=== PATIENT | male | born 1945 | race Caucasian/White ===

== ENCOUNTER 2025-05-29 16:08 | Emergency (ER) | payer MEDICARE ==
[~2025-05-29] VITALS: Ht 175.2 cm; Wt 70.3 kg
[2025-05-29 16:21] VITALS: BP 128/65
[2025-05-29] MEDS ORDERED: Tdap Vaccine 0.5 ML SYR (Adult Vaccine) IM ONE (16:25)
[2025-05-29] MEDS ORDERED: CEPHALEXIN500 M1 PO (17:05)
[2025-05-30] MEDS ORDERED: MUPIROCIN 15 GM TUBE T SCH (10:00)
== END 2025-05-29 17:23 | disposition home or self-care (01) ==
LOC: ED 16:08
DX: S61.412A Laceration without foreign body of left hand, initial encounter (principal); W26.0XXA Contact with knife, initial encounter; Y93.89 Activity, other specified; Y92.89 Other specified places as the place of occurrence of the external cause; Y99.8 Other external cause status